=== PATIENT | female | born 2000 | race Two or more races ===

== ENCOUNTER 2024-12-05 08:21 | Emergency (ER) | payer OTHER ==
[~2024-12-05] VITALS: Ht 172.7 cm; Wt 114.8 kg
--- NOTE | 2024-12-05 08:57 | ED.PDOC ---
Musculoskeletal HPI Comments A 24 YEAR-OLD FEMALE PRESENTS TO THE ED VIA WHEELCHAIR WITH A CHIEF COMPLAINT OF R ANKLE PAIN WITH ASSOCIATED SWELLING OF YESTERDAY S/P FALL. PATIENT REPORTS SHE WAS RUNNING WHEN SHE TRIPPED AND FELL YESTERDAY. PATIENT IS UNABLE TO WALK AT THIS TIME OR BEAR WEIGHT ON THE ANKLE. PATIENT HAS NO FURTHER COMPLAINTS AT T HIS TIME AND OTHERWISE DENIES FEVER, CHILLS, CHEST PAIN, DIZZINESS, LOC, OR CHEST PAIN. PATIENT IS ALERT, ORIENTED X 4, AND HAS STEADY GAIT. Chief Complaint: Lower Extremity Time Seen by MD: 08:49 Reviewed Notes: Nurses Notes, Medications, Allergies Allergies: Coded Allergies: NO KNOWN ALLERGIES (Unverified , 12/05/24) Home Meds Active Scripts Ibuprofen (Ibuprofen) 800 Mg Tab, 1 TAB PO TID, #30 TAB Prov:SERINA HERNANDEZ 12/05/24 Information Source: Patient Mode of Arrival: Wheelchair Location: Right Extremity Location: Ankle Timing: Days (1) Prehospital treatment: None Severity: Moderate Able to Move Extremity: No Bear Weight: No Pain: Moderate Circumstances: Fall Onset of Symptoms: After Trauma Symptoms: Swelling, Pain DVT Risk Factors: NONE Last Tetanus: UTD Associated signs and symptoms: Ankle pain (RIGHT ) Past Medical History PAST MEDICAL HISTORY: Denies Surgical History: HEALTH AND SAFETY TECH History: No Pertinent HEALTH AND SAFETY TECH History Family History Family History: Reviewed,noncontributory to illness, No family hx of Cancer, No family hx of DM, No family hx of Heart kristy, No family hx of HTN, No family hx ofKidney kristy, No family hx of Liver kristy, No family hx of Lung kristy, No family hx of Stroke Social History Smoker: Non-Smoker Alcohol: Denies ETOH Use Drugs: Marijuana Lives In: Home Constitutional: denies: chills, diaphoresis, fatigue, fever, malaise, sweats, weakness, others EENTM: denies: blurred vision, double vision, ear bleeding, ear discharge, ear drainage, ear pain, ear ringing, eye pain, eye redness, hearing loss, mouth pain, mouth swelling, nasal discharge, nose bleeding, nose congestion, nose pain, photophobia, tearing, throat pain, throat swelling, voice changes, others Respiratory: denies: cough, hemoptysis, orthopnea, SOB at rest, shortness of breath, SOB with excertion, stridor, wheezing, others Cardiovascular: denies: chest pain, dizzy spells, diaphoresis, Dyspnea on exertion, edema, irregular heart beat, left arm pain, lightheadedness, palpitations, PND, syncope, others Gastrointestinal: denies: abdomen distended, abdominal pain, blood streaked bowels, constipated, diarrhea, dysphagia, difficulty swallowing, hematemesis, melena, nausea, poor appetite, poor fluid intake, rectal bleeding, rectal pain, vomiting, others Genitourinary: denies: abnormal vagina bleeding, burning, dyspareunia, dysuria, flank pain, frequency, hematuria, incontinence, pain, , vagina discharge, urgency, others Neurological: denies: dizziness, fainting, headache, left sided numbness, left sided weakness, numbness, paresthesia, pre-existing deficit, right sided numbness, right sided weakness, seizure, speech problems, tingling, tremors, weakness, others Musculoskeletal: reports: joint pain, joint swelling; denies: back pain, gout, muscle pain, muscle stiffness, neck pain, others Integumetry: denies: bruises, change in color, change in hair/nails, dryness, laceration, lesions, lumps, rash, wounds, others Allergic/Immunocompromised: denies: Difficulty Healing, Frequent Infections, Hives, Itching, others Hematologic/Lymphatic: denies: anemia, blood clots, easy bleeding, easy bruising, swollen glands, others Endocrine: denies: excessive hunger, excessive sweating, excessive thirst, excessive urination, flushing, intolerance to cold, intolerance to heat, unexplained weight gain, unexplained weight loss, others Psychiatric: denies: anxiety, bipolar disorder, depression, hopeless, panic disorder, schizophrenia, sleepless, suicidal, others All Other Systems: Reviewed and Negative Physical Exam General Appearance: No Apparent Distress, Obese HEENT: Normal ENT Inspection, PERRL/EOMI, Pharynx Normal, TMs Normal Neck: Full Range of Motion, Non-Tender, Normal, Normal Inspection Respiratory: Chest Non-Tender, Lungs Clear, No Accessory Muscle Use, No Respiratory Distress, Normal Breath Sounds Cardiovascular: No Edema, No JVD, No Murmur, No Gallop, Normal Peripheral Pulses, Regular Rate/Rhythm Breast Exam: Deferred Gastrointestinal: No Organomegaly, Non Tender, No Pulsatile Mass, Normal Bowel Sounds, Soft Genitalia: Deferred Pelvic: Deferred Rectal: Deferred Extremities: Decreased range of motion, No calf tenderness, Normal capillary refill, No pedal edema, Swelling (TENDERNESS ON RIGHT ANKLE, NOP DEFORMITY. ), Tender (AND SWELLING ON RIGHT LATERAL ANKLE, NO DEFORMITY AND OPEN WOUND. ) Musculoskeletal : Apperance: Normal Neurologic: Alert, cargo service agent II-XII nml as Tested, No Motor Deficits, Normal Affect, Normal Mood, No Sensory Deficits Cerebellar Function: Normal Reflexes: Normal Skin: Dry, Normal Color, Warm Peripheral Pulses: 2+ carotid (R), 2+ carotid (L), 2+ dorsalis pedis (R), 2+ dorsalis pedis (L) Lymphatic: No Adenopathy Was a procedure done? Was a procedure done?: No Differential Diagnosis EXT Differential Diagnosis: Fracture, Sprain, Contusion, Strain, Bursitis X-Ray, Labs, Meds, VS Vital Signs Date Time Temp Pulse Resp B/P (MAP) Pulse Ox O2 Delivery O2 Flow Rate FiO2 12/05/24 09:45 100 18 98 Room Air 12/05/24 09:45 99.8 100 18 115/75 (88) 98 99.8 12/05/24 08:25 99.8 100 18 115/75 98 99.8 Current Medications Medications (Trade) Dose Ordered Sig/Reggie Route Start Time Stop Time Status Last Admin Ibuprofen (Motrin Tablet) 800 mg ONCE ONCE PO 12/05/24 09:30 12/05/24 09:31 DC 12/05/24 09:42 [place] [id number] Ph: [phone] DIAGNOSTIC IMAGING Diagnostic Imaging Report : [id number] Signed PATIENT: NITESH PACHECO ACCT: [id number] UNIT: [id number] : 2000 LOC: ER ROOM / BED: / AGE / SEX: 24 / F ADM STATUS: REG ER SERVICE [id number] ORDERING PHYSICIAN: SERINA HERNANDEZ PROCEDURE(s): RANKL - R ANKLE 3 VIEW REASON: FALL ORDER NUMBER(s): [id number], ACCESSION NUMBER(s): [id number] EXAM: XY R ANKLE 3 VIEW CLINICAL INDICATION: FALL TECHNIQUE: XY R ANKLE 3 VIEW Comparison: None FINDINGS/IMPRESSION: Avulsion fracture involving the anterior talar dome. Ankle mortise intact. Soft tissue swelling. ATED BY: LUDWIG BRICEÑO MD DICTATED DATE/TIME: 12/05/24920 SIGNED BY: LUDWIG BRICEÑO MD SIGNED DATE/TIME: 12/05/24920 CC: X-Ray, Labs, Meds, VS Comment EXTERNAL MEDICAL RECORDS REVIEWED: [NONE] INDEPENDENT HISTORIANS: [NONE] SOCIAL DETERMINANTS OF HEALTH: [NONE] LABS ORDERED: NONE REVIEWED AND INTERPRETED RESULTS: NONE IMAGING ORDERED: RIGHT ANKLE XRAY SHOWS AVULSION FRACTURE OF THE ANTERIOR TALAR DOME WITH ASSOCIATED TISSUE SWELLING. TREATMENTS ORDERED: MOTRIN 800MG AND SPLINT OF RIGHT ANKLE AND CRUTCHES. PROCEDURES PERFORMED: NONE CRITICAL CARE TIME: NONE I HAVE DISCUSSED THE PATIENT WITH THE ATTENDING PHYSICIAN, DR. DUBOIS, AND HE AGREES WITH THE PATIENT'S PLAN OF CARE AND DISPOSITION. BASED ON HISTORY OF PRESENT ILLNESS, AND PHYSICAL EXAM, PATIENT WILL BE DISCHARGED HOME. DISCUSSED PLAN FOR DISCHARGE HOME WITH RX [MOTRIN 800MG]. MEDICATION WARNINGS GIVEN. SHARED DECISION MAKING: DISCUSSED WITH PATIENT THAT THEIR WORKUP WAS NORMAL. PATIENT INSTRUCTED TO FOLLOW UP WITH PRIMARY CARE PROVIDER IN 1-2 DAYS FOR RE- EVALUATION OF SYMPTOMS. PATIENT VERBALIZES UNDERSTANDING TO RETURN TO ED FOR NEW OR WORSENING SYMPTOMS OR IF FOLLOW UP WITH PCP CANNOT BE OBTAINED. PATIENT FEELS COMFORTABLE GOING HOME AT THIS TIME. ALL QUESTIONS ADDRESSED AT TIME OF DISCHARGE. Images Reviewed?: Images reviewed and evaluated by me Time of 1ST Reevaluation: 09:51 Reevaluation 1ST: Improved Patient Education/Counseling: Diagnosis, Treatment, Need For Follow Up Family Education/Counseling: Diagnosis, Treatment, Need For Follow Up Medical Screening: No EMC Exist At This Time Departure 1 Departure Time of Disposition: 09:33 Impression: Primary Impression: Fracture of dome of talus Qualified Codes: S92.144A - Nondisplaced dome fracture of right talus, initial encounter for closed fracture Disposition: 01 HOME / SELF CARE / HOMELESS Condition: Stable Additional Instructions: FOLLOW-UP WITH PCP IN 1 TO 2 DAYS. RETURN TO ED FOR ANY NEW OR WORSENING SYMPTOMS. e-Prescriptions Ibuprofen (Ibuprofen) 800 Mg Tab 1 TAB PO TID, #30 TAB Prov: SERINA HERNANDEZ 12/05/24 Discharged With: Self Critical Care Note Critical Care Time?: No Stability Stability form required: No Heart Score Heart Score: Heart Score Response (Comments) Value History N/A 0 EKG N/A 0 Age N/A 0 Risk Factors N/A 0 Troponin N/A 0 Total 0 I personally scribed for SERINA HERNANDEZ ([email or web address]) on 12/05/24 at 08:57. Electronically submitted by Neida Hunt ([employer]). I personally scribed for SERINA HERNANDEZ ([email or web address]) on 12/05/24 at 09:00. Electronically submitted by Neida Hunt ([employer]). I personally scribed for SERINA HERNANDEZ ([email or web address]) on 12/05/24 at 09:06. Electronically submitted by Neida Hunt ([employer]). I personally scribed for SERINA HERNANDEZ ([email or web address]) on 12/05/24 at 09:28. Electronically submitted by Neida Hunt ([employer]). I personally scribed for SERINA HERNANDEZ ([email or web address]) on 12/05/24 at 09:33. Electronically submitted by Neida Hunt ([employer]). SERINA HERNANDEZ Dec 05, 2024 08:57
--- NOTE | 2024-12-05 09:23 | DVH ---
EXAM: XY R ANKLE 3 VIEW CLINICAL INDICATION: FALL TECHNIQUE: XY R ANKLE 3 VIEW Comparison: None FINDINGS/IMPRESSION: Avulsion fracture involving the anterior talar dome. Ankle mortise intact. Soft tissue swelling.
[2024-12-05] MEDS ORDERED: IBUP-1456 PO (09:32)
[2024-12-05] MEDS: IBUPROFEN 800 MG TAB PO ONE (09:42)
[2024-12-05 09:45] VITALS: BP 115/75; PULSE 100; RESP 18; TEMP 99.8; O2SAT 98
== END 2024-12-05 09:48 | disposition home or self-care (01) ==
LOC: ER 08:21
DX: S92.141A Displaced dome fracture of right talus, initial encounter for closed fracture (principal); F12.90 Cannabis use, unspecified, uncomplicated; Z79.1 Long term (current) use of non-steroidal anti-inflammatories (NSAID); Z98.890 Other specified postprocedural states; W01.0XXA Fall on same level from slipping, tripping and stumbling without subsequent striking against object, initial encounter; Y93.02 Activity, running; Y92.89 Other specified places as the place of occurrence of the external cause; Y99.8 Other external cause status
CPT/HCPCS: 29515; 73610